=== PATIENT | male | born 1985 | race Caucasian/White ===

== ENCOUNTER → 2016-10-31 | Outpatient (CLI) | payer OTHER ==
[~2016-10-31] MED LIST: CEPHALEXIN PO; DAYQUIL COLD/FL1 SGL PO; NIGHT-TIME COL300 ML; PROAIR HFA0.09 MG/AC IH; ZANTAC 150MG T150 MG PO; ZYRTEC 10MG10 MG PO
== END ==
LOC: COL.RAD 12:30
DX: M22.42 Chondromalacia patellae, left knee (principal); M25.462 Effusion, left knee; R60.0 Localized edema

== ENCOUNTER → 2017-01-03 | Outpatient (CLI) | payer OTHER | LOC: COL.VAS 12:05 | DX: I82.442 Acute embolism and thrombosis of left tibial vein (principal) ==

== ENCOUNTER → 2017-04-10 | Outpatient (CLI) | payer OTHER | LOC: COL.VAS 09:47 | DX: I82.442 Acute embolism and thrombosis of left tibial vein (principal) ==